=== PATIENT | female | born 1950 | race Caucasian/White ===

== ENCOUNTER 2016-04-21 11:58 | Emergency (ER) | payer OTHER ==
--- NOTE | 2016-04-21 18:17 | DIAGNOSTIC IMAGING REPORT ---
PROCEDURE: MR BRAIN WITHOUT CONTRAST INDICATION: VERTIGO/DIZZINESS TECHNIQUE: Multiplanar multisequence MRI imaging of the brain without contrast. COMPARISON: None. FINDINGS: The midline structures are normally formed. The ventricular system is normal in size. Basal cisterns are patent. Flow voids in the major intracranial vessels are normal. Scattered areas of increased signal are seen in the periventricular white matter. This is consistent with small-vessel ischemic disease. No restricted diffusion to suggest acute ischemia. No evidence of acute or chronic intraparenchymal or extra-axial hemorrhage. No mass, mass effect, or midline shift. The internal auditory canals are normal. The sinuses are normally aerated. Visible extracranial soft tissues including the orbits are normal. IMPRESSION: 1. Periventricular small-vessel ischemic disease. 2. Normal internal auditory canals.
--- NOTE | 2016-04-21 19:00 | ED ORDER SUMMARY ---
..... Patient: JONNATHAN CANO OrderSheet [facility] VisitID: [id number] [address] [place] [address] 65y, F Registration Date/Time: 04/21/2016 ORDER SHEET Weight: 65.7 kg (stated) Allergies: PCN, Codeine GENERAL ORDERS: Computer Clerk (Continuous) (12:04/21/2016 JBoardley R.N. per protocol) (12:27 JBoardley R.N.) CBC w Diff Urgent (12:04/21/2016 JBoardley R.N. per protocol) (Ack 12:27 LTapper) (12:32 JBoardley R.N.) CMP Urgent (12:04/21/2016 JBoardley R.N. per protocol) (Ack 12:27 LTapper) (12:32 JBoardley R.N.) UA-Culture if indicated Urgent (12:04/21/2016 JBoardley R.N. per protocol) (Ack 12:27 LTapper) (13:31 JBoardley R.N.) Pulse oximeter (12:04/21/2016 JBoardley R.N. per protocol) (12:27 JBoardley R.N.) MRI Brain/IAC wo Cont (Not Applicable) Urgent (13:04/21/2016 PHutchinson DO) (Ack 13:30 LTapper) (17:09 JBoardley R.N.) MEDICATION ORDERS: IV FLUIDS: IV NS : initial bolus none -, then 1000 mL/hr for X1 (NOW); Routine (12:04/21/2016 JBoardley R.N. per protocol) (Ack 12:27 JBoardley R.N.) (12:32 JBoardley R.N.) Zofran IV 4 mg (NOW) (12:04/21/2016 JBoardley R.N. per protocol) (Ack 12:27 JBoardley R.N.) (12:32 JBoardley R.N.) Valium IV 3 mg (HIGH ALERT MEDICATION, NOW) (13:11 04/21/2016 [facility]) (Ack 13:14 JBoardley R.N.) (13:30 JBoardley R.N.) Zofran IV 4 mg (NOW) (13:12 04/21/2016 [facility]) (Ack 13:14 JBoardley R.N.) (13:31 JBoardley R.N.) Valium IV 2 mg (HIGH ALERT MEDICATION, NOW) (16:14 04/21/2016 [facility]) (Ack 16:15 JBoardley R.N.) (16:29 JBoardley R.N.) Benadryl IV 25 mg (NOW) (16:14 04/21/2016 [facility]) (Ack 16:15 JBoardley R.N.) (16:24 JBoardley R.N.) ORDER SHEET NOTES: [Electronically signed by Real Wiley R.N. (19:22 04/21/2016)] [Electronically signed by Dariel Abraham DO (07:45 04/22/2016)] [Electronically locked/signed by Real Wiley R.N. (19:22 04/21/2016)]
--- NOTE | 2016-04-21 19:00 | ED NURSING NOTES ---
Clinical Report - Nurses [facility] [address] [place] [address] 04/21/2016 12:00 Patient: JONNATHAN CANO TRIAGE Triage time 12:18. Acuity: LEVEL 3. Chief Complaint: DIZZINESS. 12:19 04/21/16. 12:19 04/21/16. Alert. SEPSIS SCREEN: Sepsis Screen. Negative (no infection suspected/documented). SCOOBY COMA SCORE: [place] Coma Scale: 15- eyes open spontaneously (4); best verbal response- oriented x 4 (5); best motor response- obeys commands (6). --12:27 Real Wiley R.N. 12:18 04/21/16. BP: 149/108. HR: 100. RR: 20. O2 saturation: 98% on room air. Temp: 97.9 F (oral). Pain level now: 0/10. --12:27 Real Wiley R.N. Weight: 65.7 kg stated. Height/Length: 61 inches Per Patient. BMI: 27.4. --12:18 Real Wiley R.N. Medications None. --12:21 Real Wiley R.N. Medication/allergy information source: the patient and patient's family. --12:27 Real Wiley R.N. Allergies PCN. --18:48 Real Wiley R.N. Codeine. --18:49 Real Wiley R.N. The following entry was struck by Real Wiley R.N., 18:48 (04/21/16) Reason - other. <<STRICKEN ENTRY-- None. --12:21 Real Wiley R.N. --END STRIKE>>. History Arrived by private vehicle. Historian: patient. Accompanied by family. Primary physician (NONE). 12:19 04/21/16. Onset. ("a few months"). Treatment COMPENSATION SUPERVISOR: (Lorazapam, Zofran, Meclazine). PAST MEDICAL HX: Immunizations not up to date. SOCIAL HX: Never smoker. No alcohol use or drug use. No infectious disease exposure. ABUSE ASSESSMENT: No report of abuse. FALL RISK ASSESSMENT: Fall risk assessment completed. No fall risk identified. NUTRITIONAL RISK ASSESSMENT: The nutritional risk assessment revealed no deficiencies. FUNCTIONAL ASSESSMENT: Functional assessment: no impairments noted. LEARNING NEEDS ASSESSMENT: The learning needs assessment revealed no barriers. SKIN INTEGRITY ASSESSMENT: Skin integrity risk assessment completed. No skin integrity risk identified. --12:27 Real Wiley R.N. PROBLEMS: no known problems. ADDITIONAL SURGERIES: no known surgeries. Assessment 12:04/21/16. --12: Real Wiley R.N. Interventions 12:04/21/16. 12:04/21/16. ID and allergy band on patient. To treatment room. --12: Real Wiley R.N. PHYSICAL ASSESSMENT 12:04/21/16. Ambulatory to room. GENERAL / NEURO / PSYCH: Alert. Oriented X 4. RESPIRATORY: Respirations not labored. GI / : ( Pt with emesis, clear/brown). SKIN: Skin is warm and dry. --12: Real Wiley R.N. NURSING PROGRESS NOTES 12:04/21/16. The plan of care for this patient has been created. chief information security officer, pulse oximeter and NIBP monitor placed on patient; monitor alarms on. Patient gowned. Head of bed elevated. Two patient identifiers checked. Call light placed in reach. Side rails up x 2. Bed placed in lowest position. Brakes of bed on. Brakes of chair on. --12: Real Wiley R.N. 12:04/21/16. Cardiac rhythm: normal sinus rhythm. --12: Real Wiley R.N. 12:04/21/2016 Site #1 started via IV in the left antecubital space with an 20g angiocath, with aseptic technique and good blood return; one attempt. Blood drawn: rainbow set. Labeled in the presence of the patient and sent to the lab. Saline lock flushed with 10 mL saline. --12:32 Real Wiley R.N. 12:04/21/2016 Started bag #1 1000 mL IV Fluids IV NS (Saline); at 1000 mL/hr over 1 hour(s) via site #1. Allergies verified and confirmed 5 rights. IV patency established. IV site checked: no pain, redness, or swelling. IV flushed thoroughly pre- and post-medication administration. Completed per protocol. --12:32 Real Wiley R.N. 12:32 04/21/2016 Zofran (Ondansetron HCl) IVP 4 mg given over 2 minute(s) via site #1. Allergies verified and confirmed 5 rights. IV patency established. IV site checked: no pain, redness, or swelling. IV flushed thoroughly pre- and post-medication administration. IVP given by RN. --12:32 Real Wiley R.N. 12:36 04/21/16. ( Pt is unable to void). --12:36 Real Wiley R.N. 12:36 04/21/16. BP: 121/47. HR: 76. RR: 14. O2 saturation: 98% on room air. --12:36 Real Wiley R.N. 12:36 04/21/16. Cardiac rhythm: normal sinus rhythm. --12:36 Real Wiley R.N. 13:22 04/21/16. ( Pt with unsteady gait, needs one person assist with ambuation). --13:22 Real Wiley R.N. 13:30 04/21/2016 Valium (Diazepam) IVP 3 mg given over 2 minute(s) via site #1. Allergies verified, confirmed 5 rights and sedative warning given to the patient. IV patency established. IV site checked: no pain, redness, or swelling. IV flushed thoroughly pre- and post-medication administration. IVP given by RN. --13:30 Real Wiley R.N. 13:30 04/21/2016 Zofran (Ondansetron HCl) IVP 4 mg given over 2 minute(s) via site #1. Allergies verified and confirmed 5 rights. IV patency established. IV site checked: no pain, redness, or swelling. IV flushed thoroughly pre- and post-medication administration. IVP given by RN. --13:31 Real Wiley R.N. 13:31 04/21/2016 IV Fluids IV NS Discontinued: bag #1 infused. Total amount infused: 1000 mL. IV patency established. IV site checked: no pain, redness, or swelling. IV flushed thoroughly. --13:31 Real Wiley R.N. <<STRICKEN ENTRY-- 13:51 04/21/16. Cardiac rhythm: sinus bradycardia. --13:51 Real Wiley R.N. --END STRIKE>> Charted On Wrong Patient --14:22 Real Wiley R.N. <<STRICKEN ENTRY-- 13:51 04/21/16. BP: 115/68. HR: 42. RR: 16. O2 saturation: 100% on room air. --13:51 Real Wiley R.N. --END STRIKE>> Charted on wrong patient. --14:22 Real Wiley R.N. 14:21 04/21/16. Patient and family informed about reason for wait and about plan of care (MRI at 1630). --14:21 Real Wiley R.N. 14:46 04/21/16. Cardiac rhythm: normal sinus rhythm; (68). --14:46 Real Wiley R.N. 14:45 04/21/16. BP: 107/59. HR: 74. RR: 16. O2 saturation: 100% on room air. --14:46 Real Wiley R.N. 14:46 04/21/16. Patient and family informed about reason for wait and about plan of care. --14:46 Real Wiley R.N. 14:51 04/21/16. ( Gave pt ice.). --14:51 Real Wiley R.N. 16:22 04/21/2016 Zofran (Ondansetron HCl) IVP 4 mg given over 2 minute(s) via site #1. Allergies verified and confirmed 5 rights. IV patency established. IV site checked: no pain, redness, or swelling. IV flushed thoroughly pre- and post-medication administration. IVP given by RN. --16:22 Real Wiley R.N. 16:24 04/21/2016 Benadryl (DiphenhydrAMINE HCl) IVP 25 mg given over 2 minute(s) via site #1. Allergies verified, confirmed 5 rights and sedative warning given to the patient. IV patency established. IV site checked: no pain, redness, or swelling. IV flushed thoroughly pre- and post-medication administration. IVP given by RN. --16:24 Real Wiley R.N. 16:24 04/21/2016 Zofran IVP Response: no adverse reaction. --16:24 Real Wiley R.N. 16:29 04/21/2016 Valium (Diazepam) IVP 2 mg given over 2 minute(s) via site #1. Allergies verified, confirmed 5 rights and sedative warning given to the patient. IV patency established. IV site checked: no pain, redness, or swelling. IV flushed thoroughly pre- and post-medication administration. IVP given by RN. --16:29 Real Wiley R.N. 16:29 04/21/16. --16:29 Real Wiley R.N. 16:29 04/21/16. BP: 118/65. HR: 72. RR: 14. O2 saturation: 100% on room air. --16:29 Real Wiley R.N. Patient and family informed about reason for wait and about plan of care. --16:29 Real Wiley R.N. 16:29 04/21/16. Patient waiting for MRI to be done. --16:29 Real Wiley R.N. 17:04/21/16. Patient transported with nurse. (To MRI via wheelchair). --17:06 Real Wiley R.N. 17:06 04/21/16. Patient and family informed about reason for wait and about plan of care. --17:06 Real Wiley R.N. 17:56 04/21/16. Patient returned from radiology by stretcher with tech. (MRI). --17:56 Real Wiley R.N. 17:58 04/21/16. --17:58 Real Wiley R.N. 17:57 04/21/16. BP: 131/51. HR: 66. RR: 14. O2 saturation: 100% on room air. Temp: 98.1 F (oral). --17:58 Real Wiley R.N. 17:58 04/21/16. Patient and family informed about reason for wait and about plan of care. --17:58 Real Wiley R.N. 18:46 04/21/16. Patient and family informed about reason for wait and about plan of care. --18:46 Real Wiley R.N. 18:47 04/21/16. Patient waiting for (MRI results). --18:47 Real Wiley R.N. 18:52 04/21/16. --18:52 Real Wiley R.N. 18:51 04/21/16. BP: 119/65. HR: 73. RR: 18. O2 saturation: 98% on room air. Pain level now: 0/10. --18:52 Real Wiley R.N. DISPOSITION / DISCHARGE 19:20 04/21/2016 Site #1 removed upon discharge. Catheter intact. --19:20 Real Wiley R.N. 19:21 04/21/16. Cardiac rhythm: normal sinus rhythm. Condition at departure: improved. The goals identified in the patient's plan of care were met. No learning barriers present. Discharge instructions provided and reviewed with the patient and family. Reviewed warnings. Reviewed medication(s). Treatments reviewed. Patient and family verbalized understanding. Written instructions provided in Yoruba. The patient was discharged by the physician. She was discharged home and accompanied by family. She left the Emergency Department in a wheelchair and via private vehicle. Family member driving. FALL RISK ASSESSMENT: Fall risk assessment completed. No fall risk identified. --19:21 Real Wiley R.N. 19:19 04/21/16. BP: 116/72. HR: 78. RR: 14. O2 saturation: 100% on room air. Temp: 98.2 F (oral). --19:21 Real Wiley R.N. 19:21 04/21/16. Departure time: 19:21. --19:21 Real Wiley R.N. Locked/Released at 04/21/2016 19:22 by Real Wiley R.N.
--- NOTE | 2016-04-21 19:00 | ED ORDER SUMMARY ---
..... Patient: JONNATHAN CANO OrderSheet [facility] VisitID: [id number] [address] [place] [address] 65y, F Registration Date/Time: 04/21/2016 ORDER SHEET Weight: 65.7 kg (stated) Allergies: PCN, Codeine GENERAL ORDERS: Racket Stringer (Continuous) (12:04/21/2016 JBoardley R.N. per protocol) (12:27 JBoardley R.N.) CBC w Diff Urgent (12:04/21/2016 JBoardley R.N. per protocol) (Ack 12:27 LTapper) (12:32 JBoardley R.N.) CMP Urgent (12:04/21/2016 JBoardley R.N. per protocol) (Ack 12:27 LTapper) (12:32 JBoardley R.N.) UA-Culture if indicated Urgent (12:04/21/2016 JBoardley R.N. per protocol) (Ack 12:27 LTapper) (13:31 JBoardley R.N.) Pulse oximeter (12:04/21/2016 JBoardley R.N. per protocol) (12:27 JBoardley R.N.) MRI Brain/IAC wo Cont (Not Applicable) Urgent (13:04/21/2016 PHutchinson DO) (Ack 13:30 LTapper) (17:09 JBoardley R.N.) MEDICATION ORDERS: IV FLUIDS: IV NS : initial bolus none -, then 1000 mL/hr for X1 (NOW); Routine (12:04/21/2016 JBoardley R.N. per protocol) (Ack 12:27 JBoardley R.N.) (12:32 JBoardley R.N.) Zofran IV 4 mg (NOW) (12:04/21/2016 JBoardley R.N. per protocol) (Ack 12:27 JBoardley R.N.) (12:32 JBoardley R.N.) Valium IV 3 mg (HIGH ALERT MEDICATION, NOW) (13:11 04/21/2016 [facility]) (Ack 13:14 JBoardley R.N.) (13:30 JBoardley R.N.) Zofran IV 4 mg (NOW) (13:12 04/21/2016 [facility]) (Ack 13:14 JBoardley R.N.) (13:31 JBoardley R.N.) Valium IV 2 mg (HIGH ALERT MEDICATION, NOW) (16:14 04/21/2016 [facility]) (Ack 16:15 JBoardley R.N.) (16:29 JBoardley R.N.) Benadryl IV 25 mg (NOW) (16:14 04/21/2016 [facility]) (Ack 16:15 JBoardley R.N.) (16:24 JBoardley R.N.) ORDER SHEET NOTES: [Electronically signed by Real Wiley R.N. (19:22 04/21/2016)] [Electronically signed by Dariel Abraham DO (07:45 04/22/2016)] [Electronically locked/signed by Real Wiley R.N. (19:22 04/21/2016)]
--- NOTE | 2016-04-21 19:00 | ED CLINICAL REPORT ---
Clinical Report - Physicians/Mid Levels [facility] [address] [place] [address] 04/21/2016 12:00 Patient: JONNATHAN CANO Time Seen: 12:48. Arrived- By private vehicle. Historian- patient. HISTORY OF PRESENT ILLNESS Chief Complaint: DIZZINESS. This started several months ago and is still present. It was gradual in onset and has been waxing/waning. At its maximum, severity described as severe. When seen in the E.D., severity described as severe. Modifying factors- (turning head and looking up make worse. better with closing eyes and remaining still). The patient has had a mild global headache. The headache has been associated with nausea. The headache has been similar to previous ones. No photophobia, numbness or weakness. She has had visual disturbance and fatigue. Similar symptoms previously: Several times. Diagnosis: (vertigo). ( Has had several ED visits over the past several years. Has had CT and labs.). Recent medical care: Not recently seen/assessed. REVIEW OF SYSTEMS No fever, sore throat, difficulty breathing, chest pain or abdominal pain. No nausea, vomiting, diarrhea, black stools or bloody stools. No difficulty with urination, abnormal bleeding, back pain, calf pain or blackouts. No ear pain or hearing loss. The patient has had mild nasal congestion and a mild headache. She has had difficulty with ambulation. The patient has also had coordination problems. She has had tinnitus (occasional - none now). All systems otherwise negative, except as recorded above. PAST HISTORY Negative. See nurses notes. Vertigo (felt to be peripheral in etiology). Surgeries: No history of previous surgery. SOCIAL HISTORY Never smoker. No alcohol use or drug use. ADDITIONAL NOTES The nursing notes have been reviewed. PHYSICAL EXAM Vital Signs: 04/21/2016 12:18 BP: 149/108. HR: 100. RR: 20. O2 saturation: 98%. Temp: 97.9 F. Pain level now: 0/10. Appearance: Alert. Anxious. Patient in moderate distress. Eyes: Eyes normal inspection. No scleral icterus or pale conjunctivae. ENT: Pharynx normal. No pharyngeal erythema or tonsillar exudate. The mucous membranes are not dry. Neck: Normal inspection. Neck supple. No carotid bruit. CVS: Normal heart rate and rhythm. Heart sounds normal. Pulses normal. Respiratory: No respiratory distress. Breath sounds normal. Abdomen: No visible injury. Soft and nontender. Back: Normal inspection. Skin: Skin warm and dry. Normal skin color. No rash. Normal skin turgor. Extremities: Extremities exhibit normal ROM. No lower extremity edema. Neuro: Oriented X 3. No motor deficit. No sensory deficit. Reflexes normal. LABS, X-RAYS, AND EKG MRI Brain: Note- PROCEDURE: MR BRAIN WITHOUT CONTRAST INDICATION: VERTIGO/DIZZINESS TECHNIQUE: Multiplanar multisequence MRI imaging of the brain without contrast. COMPARISON: None. FINDINGS: The midline structures are normally formed. The ventricular system is normal in size. Basal cisterns are patent. Flow voids in the major intracranial vessels are normal. Scattered areas of increased signal are seen in the periventricular white matter. This is consistent with small-vessel ischemic disease. No restricted diffusion to suggest acute ischemia. No evidence of acute or chronic intraparenchymal or extra-axial hemorrhage. No mass, mass effect, or midline shift. The internal auditory canals are normal. The sinuses are normally aerated. Visible extracranial soft tissues including the orbits are normal. IMPRESSION: 1. Periventricular small-vessel ischemic disease. 2. Normal internal auditory canals. Study type: MRI without contrast. The study was independently viewed by me and interpreted by the radiologist. The study was discussed with the radiologist (via PACS note). Laboratory Tests: UA-Culture if indicated: (DIETER: 04/21/2016 13:25) ( MsgRcvd 04/21/2016 13:41) Final results Test Result Flag Units (Reference) URINE COLOR YELLOW URINE APPEARANCE CLOUDY URINE GLUCOSE NEGATIVE (NEGATIVE) URINE BILIRUBIN NEGATIVE (NEGATIVE) URINE KETONE NEGATIVE (NEGATIVE) URINE SPECIFIC GRAVITY 1.015 (1.010-1.030) URINE PH 7.5 (5.0-8.0) URINE PROTEIN NEGATIVE (NEGATIVE) URINE UROBILINOGEN 0.2 EU/dL (0.2-1.0) URINE NITRITE NEGATIVE (NEGATIVE) URINE BLOOD TRACE-INTACT (NEGATIVE) URINE LEUK ESTERASE NEGATIVE (NEGATIVE) URINE RBC NONE SEEN rbc/hpf (0-1) URINE WBC NONE SEEN wbc/hpf (0-1) URINE EPITHELIAL CELLS 3-5 EPI/hpf (0-5) URINE BACTERIA FEW (1+) (NONE SEEN) URINE COMMENT CULT NOT INDICATED 2+ AMORPHOUSURINE CULTURES ARE SET-UP BASED ON THE FOLLOWING CRITERIA:POSITIVE NITRITEPOSITIVE LEUKOCYTE ESTERASEGREATER THAN 10 WHITE BLOOD CELLSMODERATE (2+) OR GREATER BACTERIA CBC w Diff: (DIETER: 04/21/2016 12:32) ( [facility] 04/21/2016 13:14) Final results Test Result Flag Units (Reference) WHITE BLOOD COUNT 10.8 K/uL (4.5-11.5) RED BLOOD COUNT 4.98 M/uL (4.00-5.20) HEMOGLOBIN 15.2 gm/dL (12.0-16.0) HEMATOCRIT 45.7 % (36.0-46.0) MEAN CELL VOLUME 92 fL (80-100) MEAN CORPUSCULAR HGB 30 pg (26-34) MEAN CORPUSCULAR HGB CONC 33 g/dL (31-37) RED CELL DISTRIBUTION WIDTH 13.2 % (11.6-14.8) PLATELET COUNT 259 K/uL (150-400) POLY % 76 H % (50-75) BAND % 1 % (0-8) LYMPH 20 L % (25-40) MONO 3 % (3-14) EOSINOPHIL % 0 % (0-4) BASOPHIL % 0 % (0-2) METAMYELOCYTE % 0 % (0-1) MYELOCYTE 0 % (0-1) OTHER CELL TYPE 0 CMP: (DIETER: 04/21/2016 12:32) ( [facility] 04/21/2016 13:19) Final results Test Result Flag Units (Reference) GLUCOSE 122 H mg/dL (70-110) BUN 18 mg/dL (7-18) CREATININE 0.8 mg/dL (0.6-1.3) Estimated GFR >60 mL/min Estimated GFR- >60 mL/min Note: Persistent reduction over 3 months in eGFR<60 mL/min/1.73 m2 defines CKD. Patients with eGFR values>=60 mL/min/1.73 m2 may also have CKD if evidence ofpersistent proteinuria. Additional information may be foundat www.kidney.org. SODIUM 144 mmol/L (136-145) POTASSIUM 3.8 mmol/L (3.5-5.1) CHLORIDE 109 H mmol/L (98-107) CARBON DIOXIDE 27 mmol/L (21-32) CALCIUM 10.6 H mg/dL (8.5-10.1) TOTAL PROTEIN 7.1 g/dL (6.4-8.2) ALBUMIN 3.7 g/dL (3.3-5.0) BILIRUBIN, TOTAL 0.4 mg/dL (0.0-1.0) ALKALINE PHOSPHATASE 82 U/L (46-116) AST (SGOT) 19 U/L (15-37) ALT (SGPT) 25 U/L (12-78) . Pulse Oximetry: 04/21/2016 12:18 O2 saturation: 98%. (FIO2 - room air). Interpretation: normal. PROGRESS AND PROCEDURES Course of Care: Normal Saline 1 liter IVPB given. Valium 3 mg + 2 mg IVP given. Benadryl 25 mg IVP given. Zofran 4 mg + 4 mg IVP given. Patient is stable. Physical exam findings are improved. Symptoms much better. Patient/family counseled. Disposition: Discharged. Condition: stable and improved. CLINICAL IMPRESSION Recurrent vertigo of peripheral origin. INSTRUCTIONS Do not work for three days. Drink plenty of fluids. No alcohol until released. Warnings: Further evaluation is necessary. SEDATIVE MEDICATION: You were given sedative medication during your visit. Do not drive or operate dangerous machinery. CONTROLLED SUBSTANCE WARNINGS. GENERAL WARNINGS: Return or contact your physician immediately if your condition worsens or changes unexpectedly, if not improving as expected, or if other problems arise. Prescription Medications: Zofran (orally disintegrating tablets) 4 mg: take 1-2 orally every 8 hours as needed for nausea and vomiting. Dispense fifteen (15). No refill. Substitution is permissible. Antivert 25mg: Take 1 tablet orally every 8 hours as needed for dizziness. Dispense thirty (30). No refills. Substitution is permissible. Valium 5 mg: take 1 orally every 8 hours as needed. Dispense ten (10). No refill. Substitution is permissible. Follow-up: Follow up with your doctor tomorrow. Follow-up with: [facility], , , [address] [place] [address], , [place], ; [facility], , , [address], [place] [address]; [facility], [facility], , [address] [place] [address] Follow up in about three days. Call for the next available appointment. (Electronically signed by Dariel Abraham DO 04/22/2016 7:45)
--- NOTE | 2016-04-21 19:00 | ED CLINICAL REPORT ---
Clinical Report - Physicians/Mid Levels Formerly [facility] [address] [place] [address] 04/21/2016 12:00 Patient: JONNATHAN CANO Time Seen: 12:48. Arrived- By private vehicle. Historian- patient. HISTORY OF PRESENT ILLNESS Chief Complaint: DIZZINESS. This started several months ago and is still present. It was gradual in onset and has been waxing/waning. At its maximum, severity described as severe. When seen in the E.D., severity described as severe. Modifying factors- (turning head and looking up make worse. better with closing eyes and remaining still). The patient has had a mild global headache. The headache has been associated with nausea. The headache has been similar to previous ones. No photophobia, numbness or weakness. She has had visual disturbance and fatigue. Similar symptoms previously: Several times. Diagnosis: (vertigo). ( Has had several ED visits over the past several years. Has had CT and labs.). Recent medical care: Not recently seen/assessed. REVIEW OF SYSTEMS No fever, sore throat, difficulty breathing, chest pain or abdominal pain. No nausea, vomiting, diarrhea, black stools or bloody stools. No difficulty with urination, abnormal bleeding, back pain, calf pain or blackouts. No ear pain or hearing loss. The patient has had mild nasal congestion and a mild headache. She has had difficulty with ambulation. The patient has also had coordination problems. She has had tinnitus (occasional - none now). All systems otherwise negative, except as recorded above. PAST HISTORY Negative. See nurses notes. Vertigo (felt to be peripheral in etiology). Surgeries: No history of previous surgery. SOCIAL HISTORY Never smoker. No alcohol use or drug use. ADDITIONAL NOTES The nursing notes have been reviewed. PHYSICAL EXAM Vital Signs: 04/21/2016 12:18 BP: 149/108. HR: 100. RR: 20. O2 saturation: 98%. Temp: 97.9 F. Pain level now: 0/10. Appearance: Alert. Anxious. Patient in moderate distress. Eyes: Eyes normal inspection. No scleral icterus or pale conjunctivae. ENT: Pharynx normal. No pharyngeal erythema or tonsillar exudate. The mucous membranes are not dry. Neck: Normal inspection. Neck supple. No carotid bruit. CVS: Normal heart rate and rhythm. Heart sounds normal. Pulses normal. Respiratory: No respiratory distress. Breath sounds normal. Abdomen: No visible injury. Soft and nontender. Back: Normal inspection. Skin: Skin warm and dry. Normal skin color. No rash. Normal skin turgor. Extremities: Extremities exhibit normal ROM. No lower extremity edema. Neuro: Oriented X 3. No motor deficit. No sensory deficit. Reflexes normal. LABS, X-RAYS, AND EKG MRI Brain: Note- PROCEDURE: MR BRAIN WITHOUT CONTRAST INDICATION: VERTIGO/DIZZINESS TECHNIQUE: Multiplanar multisequence MRI imaging of the brain without contrast. COMPARISON: None. FINDINGS: The midline structures are normally formed. The ventricular system is normal in size. Basal cisterns are patent. Flow voids in the major intracranial vessels are normal. Scattered areas of increased signal are seen in the periventricular white matter. This is consistent with small-vessel ischemic disease. No restricted diffusion to suggest acute ischemia. No evidence of acute or chronic intraparenchymal or extra-axial hemorrhage. No mass, mass effect, or midline shift. The internal auditory canals are normal. The sinuses are normally aerated. Visible extracranial soft tissues including the orbits are normal. IMPRESSION: 1. Periventricular small-vessel ischemic disease. 2. Normal internal auditory canals. Study type: MRI without contrast. The study was independently viewed by me and interpreted by the radiologist. The study was discussed with the radiologist (via PACS note). Laboratory Tests: UA-Culture if indicated: (DIETER: 04/21/2016 13:25) ( MsgRcvd 04/21/2016 13:41) Final results Test Result Flag Units (Reference) URINE COLOR YELLOW URINE APPEARANCE CLOUDY URINE GLUCOSE NEGATIVE (NEGATIVE) URINE BILIRUBIN NEGATIVE (NEGATIVE) URINE KETONE NEGATIVE (NEGATIVE) URINE SPECIFIC GRAVITY 1.015 (1.010-1.030) URINE PH 7.5 (5.0-8.0) URINE PROTEIN NEGATIVE (NEGATIVE) URINE UROBILINOGEN 0.2 EU/dL (0.2-1.0) URINE NITRITE NEGATIVE (NEGATIVE) URINE BLOOD TRACE-INTACT (NEGATIVE) URINE LEUK ESTERASE NEGATIVE (NEGATIVE) URINE RBC NONE SEEN rbc/hpf (0-1) URINE WBC NONE SEEN wbc/hpf (0-1) URINE EPITHELIAL CELLS 3-5 EPI/hpf (0-5) URINE BACTERIA FEW (1+) (NONE SEEN) URINE COMMENT CULT NOT INDICATED 2+ AMORPHOUSURINE CULTURES ARE SET-UP BASED ON THE FOLLOWING CRITERIA:POSITIVE NITRITEPOSITIVE LEUKOCYTE ESTERASEGREATER THAN 10 WHITE BLOOD CELLSMODERATE (2+) OR GREATER BACTERIA CBC w Diff: (DIETER: 04/21/2016 12:32) ( [facility] [place] 04/21/[place] 13:14) Final results Test Result Flag Units (Reference) WHITE BLOOD COUNT 10.8 K/uL (4.5-11.5) RED BLOOD COUNT 4.98 M/uL (4.00-5.20) HEMOGLOBIN 15.2 gm/dL (12.0-16.0) HEMATOCRIT 45.7 % (36.0-46.0) MEAN CELL VOLUME 92 fL (80-100) MEAN CORPUSCULAR HGB 30 pg (26-34) MEAN CORPUSCULAR HGB CONC 33 g/dL (31-37) RED CELL DISTRIBUTION WIDTH 13.2 % (11.6-14.8) PLATELET COUNT 259 K/uL (150-400) POLY % 76 H % (50-75) BAND % 1 % (0-8) LYMPH 20 L % (25-40) MONO 3 % (3-14) EOSINOPHIL % 0 % (0-4) BASOPHIL % 0 % (0-2) METAMYELOCYTE % 0 % (0-1) MYELOCYTE 0 % (0-1) OTHER CELL TYPE 0 CMP: (DIETER: 04/21/2016 12:32) ( [facility] [place] 04/21/2016 13:19) Final results Test Result Flag Units (Reference) GLUCOSE 122 H mg/dL (70-110) BUN 18 mg/dL (7-18) CREATININE 0.8 mg/dL (0.6-1.3) Estimated GFR >60 mL/min Estimated GFR- >60 mL/min Note: Persistent reduction over 3 months in eGFR<60 mL/min/1.73 m2 defines CKD. Patients with eGFR values>=60 mL/min/1.73 m2 may also have CKD if evidence ofpersistent proteinuria. Additional information may be foundat [email or web address].org. SODIUM 144 mmol/L (136-145) POTASSIUM 3.8 mmol/L (3.5-5.1) CHLORIDE 109 H mmol/L (98-107) CARBON DIOXIDE 27 mmol/L (21-32) CALCIUM 10.6 H mg/dL (8.5-10.1) TOTAL PROTEIN 7.1 g/dL (6.4-8.2) ALBUMIN 3.7 g/dL (3.3-5.0) BILIRUBIN, TOTAL 0.4 mg/dL (0.0-1.0) ALKALINE PHOSPHATASE 82 U/L (46-116) AST (SGOT) 19 U/L (15-37) ALT (SGPT) 25 U/L (12-78) . Pulse Oximetry: 04/21/2016 12:18 O2 saturation: 98%. (FIO2 - room air). Interpretation: normal. PROGRESS AND PROCEDURES Course of Care: Normal Saline 1 liter IVPB given. Valium 3 mg + 2 mg IVP given. Benadryl 25 mg IVP given. Zofran 4 mg + 4 mg IVP given. Patient is stable. Physical exam findings are improved. Symptoms much better. Patient/family counseled. Disposition: Discharged. Condition: stable and improved. CLINICAL IMPRESSION Recurrent vertigo of peripheral origin. INSTRUCTIONS Do not work for three days. Drink plenty of fluids. No alcohol until released. Warnings: Further evaluation is necessary. SEDATIVE MEDICATION: You were given sedative medication during your visit. Do not drive or operate dangerous machinery. CONTROLLED SUBSTANCE WARNINGS. GENERAL WARNINGS: Return or contact your physician immediately if your condition worsens or changes unexpectedly, if not improving as expected, or if other problems arise. Prescription Medications: Zofran (orally disintegrating tablets) 4 mg: take 1-2 orally every 8 hours as needed for nausea and vomiting. Dispense fifteen (15). No refill. Substitution is permissible. Antivert 25mg: Take 1 tablet orally every 8 hours as needed for dizziness. Dispense thirty (30). No refills. Substitution is permissible. Valium 5 mg: take 1 orally every 8 hours as needed. Dispense ten (10). No refill. Substitution is permissible. Follow-up: Follow up with your doctor tomorrow. Follow-up with: [facility], , , [address] [place] [address], , [place], ; [facility], , , [address], [place] [address]; [facility], [facility], , [address] [place] [address] Follow up in about three days. Call for the next available appointment. (Electronically signed by Dariel Abraham DO 04/22/2016 7:45)
--- NOTE | 2016-04-22 07:46 | ED DISCHARGE INSTRUCTIONS ---
Patient: JONNATHAN CANO General Instructions [facility] VisitID: [id number] [address] [place] [address] 65y, F Registration Date/Time: 04/21/2016 Recurrent vertigo of peripheral origin. INSTRUCTIONS Do not work for three days. Drink plenty of fluids. No alcohol until released. Warnings: Further evaluation is necessary. SEDATIVE MEDICATION: You were given sedative medication during your visit. Do not drive or operate dangerous machinery. CONTROLLED SUBSTANCE WARNINGS. GENERAL WARNINGS: Return or contact your physician immediately if your condition worsens or changes unexpectedly, if not improving as expected, or if other problems arise. Prescription Medications: Zofran (orally disintegrating tablets) 4 mg: take 1-2 orally every 8 hours as needed for nausea and vomiting. Dispense fifteen (15). No refill. Substitution is permissible. Antivert 25mg: Take 1 tablet orally every 8 hours as needed for dizziness. Dispense thirty (30). No refills. Substitution is permissible. Valium 5 mg: take 1 orally every 8 hours as needed. Dispense ten (10). No refill. Substitution is permissible. Follow-up: Follow up with your doctor tomorrow. Follow-up with: [facility], , , [address] [place] [address], , [place], ; [facility], , , [address], [place] [address]; [facility], [facility], , [address] [place] [address] Follow up in about three days. Call for the next available appointment. ADDITIONAL INFORMATION Ondansetron Oral disintegrating tablet What is this medicine? ONDANSETRON (on INNA se dom) is used to treat nausea and vomiting caused by chemotherapy. It is also used to prevent or treat nausea and vomiting after surgery. How should I use this medicine? These tablets are made to dissolve in the mouth. Do not try to push the tablet through the foil backing. With dry hands, peel away the foil backing and gently remove the tablet. Place the tablet in the mouth and allow it to dissolve, then swallow. While you may take these tablets with water, it is not necessary to do so. Talk to your reimbursement spec regarding the use of this medicine in children. Special care may be needed. What side effects may I notice from receiving this medicine? Side effects that you should report to your doctor or health child care director as soon as possible: allergic reactions like skin rash, itching or hives, swelling of the face, lips, or tongue breathing problems dizziness fast or irregular heartbeat feeling faint or lightheaded, falls fever and chills swelling of the hands and feet tightness in the chest Side effects that usually do not require medical attention (report to your doctor or health child care director if they continue or are bothersome): constipation or diarrhea headache What may interact with this medicine? Do not take this medicine with any of the following medications: -apomorphine -cisapride -dofetilide -dronedarone -pimozide -thioridazine -ziprasidone This medicine may also interact with the following medications: -carbamazepine -phenytoin -rifampicin -tramadol -other medicines that prolong the QT interval (cause an abnormal heart rhythm) What if I miss a dose? If you miss a dose, take it as soon as you can. If it is almost time for your next dose, take only that dose. Do not take double or extra doses. Where should I keep my medicine? Keep out of the reach of children. Store between 2 and 30 degrees C (36 and 86 degrees F). Throw away any unused medicine after the expiration date. What should I tell my health care provider before I take this medicine? They need to know if you have any of these conditions: heart disease history of irregular heartbeat liver disease low levels of magnesium or potassium in the blood an unusual or allergic reaction to ondansetron, granisetron, other medicines, foods, dyes, or preservatives or trying to get breast-feeding What should I watch for while using this medicine? Check with your doctor or health child care director as soon as you can if you have any sign of an allergic reaction. Meclizine Hydrochloride Oral tablet What is this medicine? MECLIZINE (MEK lyndsay zeen) is an antihistamine. It is used to prevent nausea, vomiting, or dizziness caused by motion sickness. It is also used to prevent and treat vertigo (extreme dizziness or a feeling that you or your surroundings are tilting or spinning around). How should I use this medicine? Take this medicine by mouth with a glass of water. Follow the directions on the prescription label. If you are using this medicine to prevent motion sickness, take the dose at least 1 hour before travel. If it upsets your stomach, take it with food or milk. Take your doses at regular intervals. Do not take your medicine more often than directed. Talk to your reimbursement spec regarding the use of this medicine in children. Special care may be needed. What side effects may I notice from receiving this medicine? Side effects that you should report to your doctor or health child care director as soon as possible: fainting spells fast or irregular heartbeat Side effects that usually do not require medical attention (report to your doctor or health child care director if they continue or are bothersome): constipation difficulty passing urine difficulty sleeping headache stomach upset What may interact with this medicine? barbiturate medicines for inducing sleep or treating seizures digoxin medicines for anxiety or sleeping problems, like alprazolam, diazepam or temazepam medicines for hay fever and other allergies medicines for mental depression medicines for movement abnormalities as in Parkinson's disease, or for stomach problems medicines for pain medicines that relax muscles What if I miss a dose? If you miss a dose, take it as soon as you can. If it is almost time for your next dose, take only that dose. Do not take double or extra doses. Where should I keep my medicine? Keep out of the reach of children. Store at room temperature between 15 and 30 degrees C (59 and 86 degrees F). Keep container tightly closed. Throw away any unused medicine after the expiration date. What should I tell my health care provider before I take this medicine? They need to know if you have any of these conditions: asthma glaucoma prostate trouble stomach problems urinary problems an unusual or allergic reaction to meclizine, other medicines, foods, dyes, or preservatives or trying to get breast-feeding What should I watch for while using this medicine? If you are taking this medicine on a regular schedule, visit your doctor or health child care director for regular checks on your progress. You may get dizzy, drowsy or have blurred vision. Do not drive, use machinery, or do anything that needs mental alertness until you know how this medicine affects you. Do not stand or sit up quickly, especially if you are an older patient. This reduces the risk of dizzy or fainting spells. Alcohol can increase possible dizziness. Avoid alcoholic drinks. Your mouth may get dry. Chewing sugarless gum or sucking hard candy, and drinking plenty of water may help. Contact your doctor if the problem does not go away or is severe. This medicine may cause dry eyes and blurred vision. If you wear contact lenses you may feel some discomfort. Lubricating drops may help. See your eye doctor if the problem does not go away or is severe. Diazepam Oral tablet What is this medicine? DIAZEPAM (dye AZ e flako) is a benzodiazepine. It is used to treat anxiety and nervousness. It also can help treat alcohol withdrawal, relax muscles, and treat certain types of seizures. How should I use this medicine? Take this medicine by mouth with a glass of water. Follow the directions on the prescription label. If this medicine upsets your stomach, take it with food or milk. Take your doses at regular intervals. Do not take your medicine more often than directed. If you have been taking this medicine regularly for some time, do not suddenly stop taking it. You must gradually reduce the dose or you may get severe side effects. Ask your doctor or health child care director for advice. Even after you stop taking this medicine it can still affect your body for several days. Talk to your reimbursement spec regarding the use of this medicine in children. Special care may be needed. What side effects may I notice from receiving this medicine? Side effects that you should report to your doctor or health child care director as soon as possible: allergic reactions like skin rash, itching or hives, swelling of the face, lips, or tongue angry, confused, depressed, other mood changes breathing problems feeling faint or lightheaded, falls muscle cramps problems with balance, talking, walking restlessness tremors trouble passing urine or change in the amount of urine unusually weak or tired Side effects that usually do not require medical attention (report to your doctor or health child care director if they continue or are bothersome): difficulty sleeping, nightmares dizziness, drowsiness, clumsiness, or unsteadiness, a hangover effect headache nausea, vomiting What may interact with this medicine? cimetidine grapefruit juice herbal or dietary supplements like kava kava, melatonin, [place]'s Wort, or valerian medicines for anxiety or sleeping problems, like alprazolam, lorazepam, or triazolam medicines for depression, mental problems or psychiatric disturbances medicines for HIV infection or AIDS prescription pain medicines rifampin, rifapentine, or rifabutin some medicines for seizures like carbamazepine, phenobarbital, phenytoin, or primidone What if I miss a dose? If you miss a dose, take it as soon as you can. If it is almost time for your next dose, take only that dose. Do not take double or extra doses. Where should I keep my medicine? Keep out of the reach of children. This medicine can be abused. Keep your medicine in a safe place to protect it from theft. Do not share this medicine with anyone. Selling or giving away this medicine is dangerous and against the law. Store at room temperature between 15 and 30 degrees C (59 and 86 degrees F). Protect from light. Keep container tightly closed. Throw away any unused medicine after the expiration date. What should I tell my health care provider before I take this medicine? They need to know if you have any of these conditions an alcohol or drug abuse problem bipolar disorder, depression, psychosis or other mental health condition glaucoma kidney or liver disease lung or breathing disease myasthenia gravis Parkinson's disease seizures or a history of seizures suicidal thoughts an unusual or allergic reaction to diazepam, other benzodiazepines, foods, dyes, or preservatives or trying to get breast-feeding What should I watch for while using this medicine? Visit your doctor or health child care director for regular checks on your progress. Your body can become dependent on this medicine. Ask your doctor or health child care director if you still need to take it. You may get drowsy or dizzy. Do not drive, use machinery, or do anything that needs mental alertness until you know how this medicine affects you. To reduce the risk of dizzy and fainting spells, do not stand or sit up quickly, especially if you are an older patient. Alcohol may increase dizziness and drowsiness. Avoid alcoholic drinks. Do not treat yourself for coughs, colds or allergies without asking your doctor or health child care director for advice. Some ingredients can increase possible side effects. You have been given the following additional information: Ondansetron Oral disintegrating tablet Meclizine Hydrochloride Oral tablet Diazepam Oral tablet Do not work for three days. (Electronically signed by Dariel Abraham DO 04/22/2016 7:45)
--- NOTE | 2016-04-22 07:46 | ED MED RECONCILIATION SUMMARY ---
Patient: JONNATHAN CANO Medication Reconciliation Report [facility] VisitID: [id number] [address] [place] [address] 65y, F Registration Date/Time: 04/21/2016 Weight: 65.7 kg Height/Length: 61 in. BMI: 27.4 ALLERGIES: Codeine, PCN The patient's Home Medications are listed below: NONE. The source(s) of the original Home Medication information: patient's family member patient The following Medications were given to the patient in the Emergency Department: IV NS IV Fluids bolus 0, then 1000 mL/hr, administered: 04/21/2016 12:32:00 PM Zofran [IVP] IVP 4 mg, administered: 04/21/2016 12:32:00 PM Valium [IVP] IVP 3 mg, administered: 04/21/2016 1:30:00 PM Zofran [IVP] IVP 4 mg, administered: 04/21/2016 1:30:00 PM Zofran [IVP] IVP 4 mg, administered: 04/21/2016 4:22:00 PM Benadryl [IVP] IVP 25 mg, administered: 04/21/2016 4:24:00 PM Valium [IVP] IVP 2 mg, administered: 04/21/2016 4:29:00 PM The following Medications were prescribed to the patient: Zofran (orally disintegrating tablets) 4 mg: take 1-2 orally every 8 hours as needed for nausea and vomiting. Dispense fifteen (15). No refill. Substitution is permissible. -- Dariel Abraham DO Antivert 25mg: Take 1 tablet orally every 8 hours as needed for dizziness. Dispense thirty (30). No refills. Substitution is permissible. -- Dariel Abraham DO Valium 5 mg: take 1 orally every 8 hours as needed. Dispense ten (10). No refill. Substitution is permissible. -- Dariel Abraham DO
--- NOTE | 2016-04-22 07:46 | ED DISCHARGE INSTRUCTIONS ---
Patient: JONNATHAN CANO General Instructions [facility] VisitID: [id number] [address] [place] [address] 65y, F Registration Date/Time: 04/21/2016 Recurrent vertigo of peripheral origin. INSTRUCTIONS Do not work for three days. Drink plenty of fluids. No alcohol until released. Warnings: Further evaluation is necessary. SEDATIVE MEDICATION: You were given sedative medication during your visit. Do not drive or operate dangerous machinery. CONTROLLED SUBSTANCE WARNINGS. GENERAL WARNINGS: Return or contact your physician immediately if your condition worsens or changes unexpectedly, if not improving as expected, or if other problems arise. Prescription Medications: Zofran (orally disintegrating tablets) 4 mg: take 1-2 orally every 8 hours as needed for nausea and vomiting. Dispense fifteen (15). No refill. Substitution is permissible. Antivert 25mg: Take 1 tablet orally every 8 hours as needed for dizziness. Dispense thirty (30). No refills. Substitution is permissible. Valium 5 mg: take 1 orally every 8 hours as needed. Dispense ten (10). No refill. Substitution is permissible. Follow-up: Follow up with your doctor tomorrow. Follow-up with: [facility], , , [address] [place] [address], , [place], ; [facility], , , [address], [place] [address]; [facility], [facility], , [address] [place] [address] Follow up in about three days. Call for the next available appointment. ADDITIONAL INFORMATION Ondansetron Oral disintegrating tablet What is this medicine? ONDANSETRON (on INNA se dom) is used to treat nausea and vomiting caused by chemotherapy. It is also used to prevent or treat nausea and vomiting after surgery. How should I use this medicine? These tablets are made to dissolve in the mouth. Do not try to push the tablet through the foil backing. With dry hands, peel away the foil backing and gently remove the tablet. Place the tablet in the mouth and allow it to dissolve, then swallow. While you may take these tablets with water, it is not necessary to do so. Talk to your manager health regarding the use of this medicine in children. Special care may be needed. What side effects may I notice from receiving this medicine? Side effects that you should report to your doctor or health care transport nurse as soon as possible: allergic reactions like skin rash, itching or hives, swelling of the face, lips, or tongue breathing problems dizziness fast or irregular heartbeat feeling faint or lightheaded, falls fever and chills swelling of the hands and feet tightness in the chest Side effects that usually do not require medical attention (report to your doctor or health care transport nurse if they continue or are bothersome): constipation or diarrhea headache What may interact with this medicine? Do not take this medicine with any of the following medications: -apomorphine -cisapride -dofetilide -dronedarone -pimozide -thioridazine -ziprasidone This medicine may also interact with the following medications: -carbamazepine -phenytoin -rifampicin -tramadol -other medicines that prolong the QT interval (cause an abnormal heart rhythm) What if I miss a dose? If you miss a dose, take it as soon as you can. If it is almost time for your next dose, take only that dose. Do not take double or extra doses. Where should I keep my medicine? Keep out of the reach of children. Store between 2 and 30 degrees C (36 and 86 degrees F). Throw away any unused medicine after the expiration date. What should I tell my health care provider before I take this medicine? They need to know if you have any of these conditions: heart disease history of irregular heartbeat liver disease low levels of magnesium or potassium in the blood an unusual or allergic reaction to ondansetron, granisetron, other medicines, foods, dyes, or preservatives or trying to get breast-feeding What should I watch for while using this medicine? Check with your doctor or health care transport nurse as soon as you can if you have any sign of an allergic reaction. Meclizine Hydrochloride Oral tablet What is this medicine? MECLIZINE (MEK lyndsay zeen) is an antihistamine. It is used to prevent nausea, vomiting, or dizziness caused by motion sickness. It is also used to prevent and treat vertigo (extreme dizziness or a feeling that you or your surroundings are tilting or spinning around). How should I use this medicine? Take this medicine by mouth with a glass of water. Follow the directions on the prescription label. If you are using this medicine to prevent motion sickness, take the dose at least 1 hour before travel. If it upsets your stomach, take it with food or milk. Take your doses at regular intervals. Do not take your medicine more often than directed. Talk to your manager health regarding the use of this medicine in children. Special care may be needed. What side effects may I notice from receiving this medicine? Side effects that you should report to your doctor or health care transport nurse as soon as possible: fainting spells fast or irregular heartbeat Side effects that usually do not require medical attention (report to your doctor or health care transport nurse if they continue or are bothersome): constipation difficulty passing urine difficulty sleeping headache stomach upset What may interact with this medicine? barbiturate medicines for inducing sleep or treating seizures digoxin medicines for anxiety or sleeping problems, like alprazolam, diazepam or temazepam medicines for hay fever and other allergies medicines for mental depression medicines for movement abnormalities as in Parkinson's disease, or for stomach problems medicines for pain medicines that relax muscles What if I miss a dose? If you miss a dose, take it as soon as you can. If it is almost time for your next dose, take only that dose. Do not take double or extra doses. Where should I keep my medicine? Keep out of the reach of children. Store at room temperature between 15 and 30 degrees C (59 and 86 degrees F). Keep container tightly closed. Throw away any unused medicine after the expiration date. What should I tell my health care provider before I take this medicine? They need to know if you have any of these conditions: asthma glaucoma prostate trouble stomach problems urinary problems an unusual or allergic reaction to meclizine, other medicines, foods, dyes, or preservatives or trying to get breast-feeding What should I watch for while using this medicine? If you are taking this medicine on a regular schedule, visit your doctor or health care transport nurse for regular checks on your progress. You may get dizzy, drowsy or have blurred vision. Do not drive, use machinery, or do anything that needs mental alertness until you know how this medicine affects you. Do not stand or sit up quickly, especially if you are an older patient. This reduces the risk of dizzy or fainting spells. Alcohol can increase possible dizziness. Avoid alcoholic drinks. Your mouth may get dry. Chewing sugarless gum or sucking hard candy, and drinking plenty of water may help. Contact your doctor if the problem does not go away or is severe. This medicine may cause dry eyes and blurred vision. If you wear contact lenses you may feel some discomfort. Lubricating drops may help. See your eye doctor if the problem does not go away or is severe. Diazepam Oral tablet What is this medicine? DIAZEPAM (dye AZ e flako) is a benzodiazepine. It is used to treat anxiety and nervousness. It also can help treat alcohol withdrawal, relax muscles, and treat certain types of seizures. How should I use this medicine? Take this medicine by mouth with a glass of water. Follow the directions on the prescription label. If this medicine upsets your stomach, take it with food or milk. Take your doses at regular intervals. Do not take your medicine more often than directed. If you have been taking this medicine regularly for some time, do not suddenly stop taking it. You must gradually reduce the dose or you may get severe side effects. Ask your doctor or health care transport nurse for advice. Even after you stop taking this medicine it can still affect your body for several days. Talk to your manager health regarding the use of this medicine in children. Special care may be needed. What side effects may I notice from receiving this medicine? Side effects that you should report to your doctor or health care transport nurse as soon as possible: allergic reactions like skin rash, itching or hives, swelling of the face, lips, or tongue angry, confused, depressed, other mood changes breathing problems feeling faint or lightheaded, falls muscle cramps problems with balance, talking, walking restlessness tremors trouble passing urine or change in the amount of urine unusually weak or tired Side effects that usually do not require medical attention (report to your doctor or health care transport nurse if they continue or are bothersome): difficulty sleeping, nightmares dizziness, drowsiness, clumsiness, or unsteadiness, a hangover effect headache nausea, vomiting What may interact with this medicine? cimetidine grapefruit juice herbal or dietary supplements like kava kava, melatonin, [place]'s Wort, or valerian medicines for anxiety or sleeping problems, like alprazolam, lorazepam, or triazolam medicines for depression, mental problems or psychiatric disturbances medicines for HIV infection or AIDS prescription pain medicines rifampin, rifapentine, or rifabutin some medicines for seizures like carbamazepine, phenobarbital, phenytoin, or primidone What if I miss a dose? If you miss a dose, take it as soon as you can. If it is almost time for your next dose, take only that dose. Do not take double or extra doses. Where should I keep my medicine? Keep out of the reach of children. This medicine can be abused. Keep your medicine in a safe place to protect it from theft. Do not share this medicine with anyone. Selling or giving away this medicine is dangerous and against the law. Store at room temperature between 15 and 30 degrees C (59 and 86 degrees F). Protect from light. Keep container tightly closed. Throw away any unused medicine after the expiration date. What should I tell my health care provider before I take this medicine? They need to know if you have any of these conditions an alcohol or drug abuse problem bipolar disorder, depression, psychosis or other mental health condition glaucoma kidney or liver disease lung or breathing disease myasthenia gravis Parkinson's disease seizures or a history of seizures suicidal thoughts an unusual or allergic reaction to diazepam, other benzodiazepines, foods, dyes, or preservatives or trying to get breast-feeding What should I watch for while using this medicine? Visit your doctor or health care transport nurse for regular checks on your progress. Your body can become dependent on this medicine. Ask your doctor or health care transport nurse if you still need to take it. You may get drowsy or dizzy. Do not drive, use machinery, or do anything that needs mental alertness until you know how this medicine affects you. To reduce the risk of dizzy and fainting spells, do not stand or sit up quickly, especially if you are an older patient. Alcohol may increase dizziness and drowsiness. Avoid alcoholic drinks. Do not treat yourself for coughs, colds or allergies without asking your doctor or health care transport nurse for advice. Some ingredients can increase possible side effects. You have been given the following additional information: Ondansetron Oral disintegrating tablet Meclizine Hydrochloride Oral tablet Diazepam Oral tablet Do not work for three days. (Electronically signed by Dariel Abraham DO 04/22/2016 7:45)
--- NOTE | 2016-04-22 07:46 | ED MAR SUMMARY ---
..... Medication Administration Record [facility] [address] [place] [address] Patient: JONNATHAN CANO Visit ID: [id number] 65y, F Weight: 65.7 kg Height/Length: 61 in BMI: 27.4 ALLERGIES: Codeine, PCN Start 12:32 04/21/2016 Real Wiley R.N., Stop 13:04/21/2016 Real Wiley R.N. Medication Administered: IV NS (SALINE), Dose: IV Fluids over 1 hour(s), Rate: 1000 mL/hr, Dispensed: 1000 mL bag, Site: #1 left AC. Medication Ordered: IV NS : initial bolus none -, then 1000 mL/hr for X1 (NOW); Routine. Given 12:32 04/21/2016 Real Wiley R.N. Medication Administered: ZOFRAN [IVP] (ONDANSETRON HCL), Dose: 4 mg IVP over 2 minute(s), Site: #1 left AC. Medication Ordered: Zofran IV 4 mg (NOW). Given 13:04/21/2016 Real Wiley R.N. Medication Administered: VALIUM [IVP] (DIAZEPAM), Dose: 3 mg IVP over 2 minute(s), Site: #1 left AC. Medication Ordered: Valium IV 3 mg (HIGH ALERT MEDICATION, NOW). Given 13:04/21/2016 Real Wiley R.N. Medication Administered: ZOFRAN [IVP] (ONDANSETRON HCL), Dose: 4 mg IVP over 2 minute(s), Site: #1 left AC. Medication Ordered: Zofran IV 4 mg (NOW). Given 16:04/21/2016 Real Wiley R.N. Medication Administered: ZOFRAN [IVP] (ONDANSETRON HCL), Dose: 4 mg IVP over 2 minute(s), Site: #1 left AC. Medication Ordered: Zofran IV 4 mg (NOW). Given 16:04/21/2016 Real Wiley R.N. Medication Administered: BENADRYL [IVP] (DIPHENHYDRAMINE HCL), Dose: 25 mg IVP over 2 minute(s), Site: #1 left AC. Medication Ordered: Benadryl IV 25 mg (NOW). Given 16:29 04/21/2016 Real Wiley R.N. Medication Administered: VALIUM [IVP] (DIAZEPAM), Dose: 2 mg IVP over 2 minute(s), Site: #1 left AC. Medication Ordered: Valium IV 2 mg (HIGH ALERT MEDICATION, NOW).
--- NOTE | 2016-04-22 07:46 | ED MED RECONCILIATION SUMMARY ---
Patient: JONNATHAN CANO Medication Reconciliation Report [facility] VisitID: [id number] [address] [place] [address] 65y, F Registration Date/Time: 04/21/2016 Weight: 65.7 kg Height/Length: 61 in. BMI: 27.4 ALLERGIES: Codeine, PCN The patient's Home Medications are listed below: NONE. The source(s) of the original Home Medication information: patient's family member patient The following Medications were given to the patient in the Emergency Department: IV NS IV Fluids bolus 0, then 1000 mL/hr, administered: 04/21/2016 12:32:00 PM Zofran [IVP] IVP 4 mg, administered: 04/21/2016 12:32:00 PM Valium [IVP] IVP 3 mg, administered: 04/21/2016 1:30:00 PM Zofran [IVP] IVP 4 mg, administered: 04/21/2016 1:30:00 PM Zofran [IVP] IVP 4 mg, administered: 04/21/2016 4:22:00 PM Benadryl [IVP] IVP 25 mg, administered: 04/21/2016 4:24:00 PM Valium [IVP] IVP 2 mg, administered: 04/21/2016 4:29:00 PM The following Medications were prescribed to the patient: Zofran (orally disintegrating tablets) 4 mg: take 1-2 orally every 8 hours as needed for nausea and vomiting. Dispense fifteen (15). No refill. Substitution is permissible. -- Dariel Abraham DO Antivert 25mg: Take 1 tablet orally every 8 hours as needed for dizziness. Dispense thirty (30). No refills. Substitution is permissible. -- Dariel Abraham DO Valium 5 mg: take 1 orally every 8 hours as needed. Dispense ten (10). No refill. Substitution is permissible. -- Dariel Abraham DO
--- NOTE | 2016-04-22 07:46 | ED MAR SUMMARY ---
..... Medication Administration Record [facility] [address] [place] [address] Patient: JONNATHAN CANO Visit ID: [id number] 65y, F Weight: 65.7 kg Height/Length: 61 in BMI: 27.4 ALLERGIES: Codeine, PCN Start 12:32 04/21/2016 Real Wiley R.N., Stop 13:04/21/2016 Real Wiley R.N. Medication Administered: IV NS (SALINE), Dose: IV Fluids over 1 hour(s), Rate: 1000 mL/hr, Dispensed: 1000 mL bag, Site: #1 left AC. Medication Ordered: IV NS : initial bolus none -, then 1000 mL/hr for X1 (NOW); Routine. Given 12:32 04/21/2016 Real Wiley R.N. Medication Administered: ZOFRAN [IVP] (ONDANSETRON HCL), Dose: 4 mg IVP over 2 minute(s), Site: #1 left AC. Medication Ordered: Zofran IV 4 mg (NOW). Given 13:04/21/2016 Real Wiley R.N. Medication Administered: VALIUM [IVP] (DIAZEPAM), Dose: 3 mg IVP over 2 minute(s), Site: #1 left AC. Medication Ordered: Valium IV 3 mg (HIGH ALERT MEDICATION, NOW). Given 13:04/21/2016 Real Wiley R.N. Medication Administered: ZOFRAN [IVP] (ONDANSETRON HCL), Dose: 4 mg IVP over 2 minute(s), Site: #1 left AC. Medication Ordered: Zofran IV 4 mg (NOW). Given 16:04/21/2016 Real Wiley R.N. Medication Administered: ZOFRAN [IVP] (ONDANSETRON HCL), Dose: 4 mg IVP over 2 minute(s), Site: #1 left AC. Medication Ordered: Zofran IV 4 mg (NOW). Given 16:04/21/2016 Real Wiley R.N. Medication Administered: BENADRYL [IVP] (DIPHENHYDRAMINE HCL), Dose: 25 mg IVP over 2 minute(s), Site: #1 left AC. Medication Ordered: Benadryl IV 25 mg (NOW). Given 16:29 04/21/2016 Real Wiley R.N. Medication Administered: VALIUM [IVP] (DIAZEPAM), Dose: 2 mg IVP over 2 minute(s), Site: #1 left AC. Medication Ordered: Valium IV 2 mg (HIGH ALERT MEDICATION, NOW).
== END 2016-04-21 19:21 | disposition home or self-care (01) ==
LOC: ED SRH 11:58
DX: H81.399 Other peripheral vertigo, unspecified ear (principal); Z88.0 Allergy status to penicillin; Z88.5 Allergy status to narcotic agent
CPT/HCPCS: 90004; 90100; 91643; 95059